=== PATIENT | female | born 1935 | race Caucasian/White ===

== ENCOUNTER 2019-06-19 10:29 | Emergency (ER) | payer MEDICARE, OTHER, SELFPAY ==
[2019-06-19 10:32] VITALS: BP 145/51; PULSE 86; RESP 20; TEMP 36.5; O2SAT 96; BMI 19.0
--- NOTE | 2019-06-19 10:47 | ED_ITS ---
HPI - Neuro Symptoms/Deficit General Chief Complaint: Neuro Symptoms/Deficit Stated Complaint: ? stroke Time Seen by Provider: 06/19/19 10:37 Source: patient Mode of arrival: Wheelchair Limitations: no limitations History of Present Illness HPI Narrative: The patient is a 84-year-old female with history of Meniere's disease presenting with extreme dizziness today so much so that she fell down. She says this is quite abnormal for her he felt a little nauseous he no longer feels like the room is spinning. She was able to call herself a cab and walk into the emergency department. She denies any weakness in her extremities no numbness or tingling she is no longer nauseous she still feels like the room is spinning slightly. But does not want any medication for it. She said the dizziness started suddenly off for her this morning and it seems to have resolved it lasted about 30-60 minutes Related Data Home Medications Medication Instructions Recorded Confirmed galantamine 4 mg tablet 4 mg PO ONCE 06/15/19 06/15/19 galantamine 8 mg tablet 8 mg PO ONCE tab 06/15/19 06/15/19 Allergies Allergy/AdvReac Type Severity Reaction Status Date / Time No Allergy Information Allergy Verified 06/19/19 10:59 Available Review of Systems Review of Systems Narrative: GENERAL: Denies chills, fatigue, malaise, fever, sweats, travel HEENT: Denies sinus pain, ear pain, sore throat, difficulty swallowing, neck pa in RESPIRATORY: Denies dyspnea, cough, wheezing, hemoptysis, sputum. CARDIOVASCULAR: Denies chest pain, palpitations, orthopnea, edema GASTROINTESTINAL: Denies nausea, vomiting, abdominal pain, diarrhea, constipation, melena. : Denies dysuria, frequency, incontinence, hematuria, urinary retention, flank pain. MUSCULOSKELETAL: Denies weakness, joint pain, or bony pain SKIN: No rash, no erythema, no pruritus NEUROLOGIC: See HPI PSYCHIATRIC: No concerning psychosocial issues. 12 point review of systems is negative except for those stated above and HPI Patient History Medical History Anemia (Chronic) Breast cancer (Chronic) Carpal tunnel syndrome (Chronic) Chicken pox (Resolved) Gerson level IV melanoma (Chronic) Head and neck cancer (Chronic) Measles (Resolved) Melanoma (Chronic) Meniere's disease (Chronic) Mumps (Resolved) Skin cancer (Chronic) Vision disorder (Chronic) Surgical History Anesthesia (Resolved) Flesh-eating bacteria (Resolved) History of cholecystectomy (Resolved) Family History Father History of heart disease Social History Smoking Status: Former smoker Exam Initial Vital Signs Initial Vital Signs: Vital Signs Temperature 97.7 F 06/19/19 10:32 Pulse Rate 86 06/19/19 10:32 Respiratory Rate 20 06/19/19 10:32 Blood Pressure 145/51 H 06/19/19 10:32 Pulse Oximetry 96 06/19/19 10:32 GENERAL: Chronically ill elderly female and in no acute distress. HEENT: Head atraumatic,EOMI, pupils reactive, face symmetric, moist mucous membranes CARDIOVASCULAR: Regular rate and rhythm without murmurs, rubs or gallops. RESPIRATORY: Breath sounds equal bilaterally, no wheezes rales or rhonchi. ABDOMEN: Soft, nontender. Normoactive bowel sounds all 4 quadrants. No guarding or rebound. EXTREMITIES: Normal range of motion, no clubbing or edema. Neurovascularly intact NEUROLOGICAL: Alert and oriented x4.Normal gait and speech. Cranial nerves II through XII grossly intact. Good endmce-gy-[id number], good aecw-my-kekm, strength equal bilaterally, no dysarthria or aphasia, sensation in tact to soft touch bilaterally, no visual changes, no facial droop SKIN: Warm, dry, no laceration, no petechiae, no rashes or lesions. Scores NIH Stroke Scale Level of Conciousness: Alert, keenly responsive Ask month/age: Answers both questions correctly. Open/close eyes, close hand: Performs both tasks correctly Best gaze horizontal: Normal Visual cottrell: No visual loss Facial palsy: Normal symetrical movement Left arm drift: No drift for full 10 sec Right arm drift: No drift for full 10 sec Left leg drift: No drift for full 10 sec Right leg drift: No drift for full 10 sec Limb ataxia: Absent Sensory on face/arms/legs: Normal, no sensory loss Best language: No aphasia, normal Dysarthria: Normal Extinction or inattention: No abnormality Total NIH Stroke scale score: 0 Course Orders Ordered: ED Orders 06/19/19 10:48 CT head/brain wo con Stat EKG-12 Lead Stat 06/19/19 11:15 Complete Blood Count AUTO DIFF Stat Comprehensive Metabolic Panel Stat Partial Thromboplastin Time Stat Prothrombin Time INR Stat Troponin I Stat 06/19/19 12:20 Urine Drug Screen, Rapid Stat Urine Microscopic Stat Discontinued Medications Sodium Chloride (Normal Saline 0.9%) 1,000 mls @ 1,000 mls/hr IV CONT RYLEE Last Admin: 06/19/19 11:40 Dose: Not Given Documented by: DANNY Meclizine HCl (Antivert) 25 mg PO NOW ONE Stop: 06/19/19 10:49 Last Admin: 06/19/19 11:32 Dose: Not Given Documented by: DANNY Vital Signs Vital signs: Vital Signs - 8 hr 06/19/19 10:32 06/19/19 12:11 06/19/19 12:50 Temperature 97.7 F Pulse Rate 86 60 55 L Respiratory Rate 20 16 Blood Pressure 145/51 H 125/57 L Blood Pressure [Left Arm] 115/69 Pulse Oximetry 96 99 99 MDM - Neuro Symptoms/Deficit Lab Data Attestation: I reviewed the patient's lab results. Result diagrams: 06/19/19 11:15 06/19/19 11:15 Labs: Lab Results 06/19/19 06/19/19 06/19/19 Range/Units 11:15 11:15 11:15 WBC 5.3 (4.5-11.0) X10^3/uL RBC 4.52 (4.0-5.2) X10^6/uL Hgb 14.1 (12.0-16.0) g/dL Hct 41.7 (36-46) % MCV 92.2 (80-100) fL MCH 31.2 (26-34) PG MCHC 33.8 (30-36) % RDW 13.1 (11.6-14.8) % Plt Count 211 (150-400) X10^3/uL Neut % (Auto) 66.0 (50-75) % Lymph % (Auto) 17.5 L (25-40) % [place] % (Auto) 8.5 (3-14) % Eos % (Auto) 3.2 (2-4) % Baso % (Auto) 4.8 H (0-2) % Neut # (Auto) 3500 (3359-9255) /uL Lymph # (Auto) 900 L (2484-9924) /uL [place] # (Auto) 500 (0-900) /uL Eos # (Auto) 200 (0-450) /uL Baso # (Auto) 300 H (0-100) /uL PT 11.2 (10.1-12.7) SECONDS INR 1.0 (0.9-1.3) APTT 32 (26.4-36.2) SECONDS Sodium 138 (137-145) mmol/L Potassium 4.0 (3.4-5.1) mmol/L Chloride 101 (98-107) mmol/L Carbon Dioxide 31 (22-32) mmol/L BUN 16 (7-17) mg/dL Creatinine 0.70 (0.52-1.04) mg/dL Estimated GFR > 60.0 (>60) mL/min BUN/Creatinine Ratio 22.9 H (6-22) Glucose 159 H (80-110) mg/dL Calcium 9.7 (8.4-10.2) mg/dL Total Bilirubin 1.1 (0.2-1.3) mg/dL AST 31 (14-36) IU/L ALT 14 (<35) IU/L Alkaline Phosphatase 41 (38-126) U/L Troponin I < 0.012 (0.01-0.034) ng/mL Total Protein 7.1 (6.3-8.2) g/dL Albumin 4.4 (3.5-5.0) g/dL Globulin 2.7 (1.7-4.1) g/dL Albumin/Globulin Ratio 1.6 (1.0-2.8) Urine RBC (0-5/HPF) Urine WBC (0-5/HPF) Ur Squamous Epith Cells (0-5/HPF) Urine Bacteria (None) Ur Culture Indicated? Micro UA Comment U Morph 300 ng/mL cutoff (Negative) Ur Oxycodone Screen (Negative) Urine Methadone Screen (Negative) Ur Barbiturates Screen (Negative) U Tricyclic Antidepress (Negative) Ur Phencyclidine Scrn (Negative) Ur Amphetamines Screen (Negative) U Methamphetamines Scrn (Negative) Ur MDMA Scrn (Ecstasy) (Negative) U Benzodiazepines Scrn (Negative) Urine Cocaine Screen (Negative) U Marijuana (THC) Screen (Negative) 06/19/19 06/19/19 Range/Units 12:20 12:20 WBC (4.5-11.0) X10^3/uL RBC (4.0-5.2) X10^6/uL Hgb (12.0-16.0) g/dL Hct (36-46) % MCV (80-100) fL MCH (26-34) PG MCHC (30-36) % RDW (11.6-14.8) % Plt Count (150-400) X10^3/uL Neut % (Auto) (50-75) % Lymph % (Auto) (25-40) % [place] % (Auto) (3-14) % Eos % (Auto) (2-4) % Baso % (Auto) (0-2) % Neut # (Auto) (9483-4928) /uL Lymph # (Auto) (4661-7490) /uL [place] # (Auto) (0-900) /uL Eos # (Auto) (0-450) /uL Baso # (Auto) (0-100) /uL PT (10.1-12.7) SECONDS INR (0.9-1.3) APTT (26.4-36.2) SECONDS Sodium (137-145) mmol/L Potassium (3.4-5.1) mmol/L Chloride (98-107) mmol/L Carbon Dioxide (22-32) mmol/L BUN (7-17) mg/dL Creatinine (0.52-1.04) mg/dL Estimated GFR (>60) mL/min BUN/Creatinine Ratio (6-22) Glucose (80-110) mg/dL Calcium (8.4-10.2) mg/dL Total Bilirubin (0.2-1.3) mg/dL AST (14-36) IU/L ALT (<35) IU/L Alkaline Phosphatase (38-126) U/L Troponin I (0.01-0.034) ng/mL Total Protein (6.3-8.2) g/dL Albumin (3.5-5.0) g/dL Globulin (1.7-4.1) g/dL Albumin/Globulin Ratio (1.0-2.8) Urine RBC 1-5/hpf (0-5/HPF) Urine WBC 0-1/hpf (0-5/HPF) Ur Squamous Epith Cells 1-5 /hpf (0-5/HPF) Urine Bacteria None seen (None) Ur Culture Indicated? Cult not indicated Micro UA Comment Microscopic normal U Morph 300 ng/mL cutoff Negative (Negative) Ur Oxycodone Screen Negative (Negative) Urine Methadone Screen Negative (Negative) Ur Barbiturates Screen Negative (Negative) U Tricyclic Antidepress Negative (Negative) Ur Phencyclidine Scrn Negative (Negative) Ur Amphetamines Screen Negative (Negative) U Methamphetamines Scrn Negative (Negative) Ur MDMA Scrn (Ecstasy) Negative (Negative) U Benzodiazepines Scrn Negative (Negative) Urine Cocaine Screen Negative (Negative) U Marijuana (THC) Screen Negative (Negative) Point of Care Testing Glucose POC 160 Urine Dip Bedside Urine Glucose Negative Bedside Urine Bilirubin - Negative Bedside Urine Ketone - Negative Urine Specific [place] 1.010 Bedside Urine Occult Blood - Negative Bedside Urine pH 7.0 Bedside Urine Protein - Negative Bedside Urine Urobilinogen - Negative Bedside Urine Nitrite - Negative Bedside Urine Leukocytes +/- [address] scan - head: Radiologist's impression: PROCEDURE: CT HEAD/BRAIN WO CON INDICATIONS: dizzy fall TECHNIQUE: Noncontrast 4.5 mm thick angled axial sections acquired from the foramen magnum to the vertex, with coronal and sagittal reformats. For radiation dose reduction, the following was used: automated exposure control, adjustment of mA and/or kV according to patient size. COMPARISON: None. FINDINGS: Image quality: There is streak artifact from the patient's earrings seen. CSF spaces: Basal cisterns are patent. No extra-axial fluid collections. The ventricles are symmetric in size and shape. Brain: No intracranial bleeds or masses. There is cerebral volume loss for age, with resultant ventricular and sulcal prominence. There are periventricular and deep white matter chronic small vessel ischemic changes. There is intracranial internal carotid artery atherosclerosis. Skull and face: Calvarium and visualized facial bones appear intact, without suspicious lesions. Sinuses: Visualized sinuses and mastoids are clear. IMPRESSION: No significant intracranial examination is seen for age. Dictated by: Toy Johnson M.D. on 06/19/2019 at 10:54 ECG Data Attestation: I personally reviewed and interpreted this ECG as follows: Interpretation: Normal sinus rhythm rate 63 p.r. interval 157 QRS [address] elevation depression T-wave inversion noted in lead 3 only MDM Narrative Medical decision making narrative: Patient refusing IV fluids and all medication. She is ambulatory to the restroom without any difficulty. No signs or symptoms of stroke no deficits. This seems to be an exacerbation of her Meinere's. She has previously needed an injection in her ear. Discharge Plan Departure Patient Disposition: Home Clinical Impression: Meniere's disease Qualifiers: Laterality: unspecified laterality Qualified Code(s): H81.09 - Meniere's disease, unspecified ear Discharge Date/Time: 06/19/19 12:51 Activity Restrictions/Additional Instructions: *You have been diagnosed with Meniere's disease *What to do: Today was likely an exacerbation of her Meniere's disease no evidence of stroke *Continue to take medications as directed *Follow up with your primary care provider in 2-3 days *Return to ER if you should have persistent dizziness nausea vomiting, extremity weakness difficulty with speech or any new, worsening or concerning symptoms Prescriptions: No Action galantamine 8 mg tablet 8 mg PO ONCE RF: 0 galantamine 4 mg tablet 4 mg PO ONCE RF: 0 Referrals: Raghavendra Nguyen MD [Primary Care Provider] -
[2019-06-19 11:31] LABS: Add Manual Diff / Slide Review NO; Basophils Absolute Auto 300 /uL (0-100); Basophils Percent Auto 4.8 % (0-2); Eosinophils Absolute Auto 200 /uL (0-450); Eosinophils Percent Auto 3.2 % (2-4); Hematocrit 41.7 % (36-46); Hemoglobin 14.1 g/dL (12.0-16.0); Lymphocytes Absolute Auto 900 /uL (1100-4500); Lymphocytes Percent Auto 17.5 % (25-40); Mean Corpuscular HGB Conc 33.8 % (30-36); Mean Corpuscular Hemoglobin 31.2 PG (26-34); Mean Corpuscular Volume 92.2 fL (80-100); Monocytes Absolute Auto 500 /uL (0-900); Monocytes Percent Auto 8.5 % (3-14); Neutrophils Absolute Auto 3500 /uL (1500-7000); Platelet Count 211 X10^3/uL (150-400); Red Blood Cell Count 4.52 X10^6/uL (4.0-5.2); Red Cell Distribution Width 13.1 % (11.6-14.8); White Blood Cell Count 5.3 X10^3/uL (4.5-11.0)
[2019-06-19 11:38] LABS: Prothrombin Time 11.2 SECONDS (10.1-12.7)
[2019-06-19 11:41] LABS: PTT Partial Thromboplastin Tim 32 SECONDS (26.4-36.2)
[2019-06-19 11:42] LABS: Alanine Aminotransferase 14 IU/L (<35); Albumin 4.4 g/dL (3.5-5.0); Albumin Globulin Ratio 1.6 (1.0-2.8); Alkaline Phosphatase 41 U/L (38-126); Aspartate Aminotransferase 31 IU/L (14-36); BUN Creatinine Ratio 22.9 (6-22); Bilirubin Total 1.1 mg/dL (0.2-1.3); Blood Urea Nitrogen 16 mg/dL (7-17); Calcium 9.7 mg/dL (8.4-10.2); Carbon Dioxide 31 mmol/L (22-32); Chloride 101 mmol/L (98-107); Estimated Glomerular Filt Rate > 60.0 mL/min (>60); Globulin 2.7 g/dL (1.7-4.1); Glucose 159 mg/dL (80-110); HEMOLYSIS 43 (0-50); Sodium 138 mmol/L (137-145); Total Protein 7.1 g/dL (6.3-8.2)
[2019-06-19 11:53] LABS: Troponin I < 0.012 ng/mL (0.01-0.034)
--- NOTE | 2019-06-19 11:59 | PC.NURSE ---
1 IV attempt. Pt states I need to use baby needles i attempted IV with 22. Pt refuses to let anyone try for a second IV. Explained need for medications and IV. Pt still refused. , notified and Lab called for draw. Pt also states she took her own meclazine at home and declines medication here. Notified.
[2019-06-19 12:11] VITALS: BP 115/69; PULSE 60; O2SAT 99
--- NOTE | 2019-06-19 12:16 | PC.NURSE ---
Pt states she was walking, got dizzy and fell into TV,. unclear if she hit her head. States she does this all the time but this is worse than normal
--- NOTE | 2019-06-19 12:25 | PC.NURSE ---
Pt ambulatory to restroom. States she feels better. Pt steady on her feet denies symptoms at this time. Notiffeli
[2019-06-19 12:35] LABS: Bacteria Urine None Seen
[2019-06-19 12:37] LABS: UR Morphine/Opiate cutoff 300 Negative (Negative); Ur Creatinine Normal (Normal); Ur Specific Gravity Normal (Normal); Urine Amphetamines Negative (Negative); Urine Barbiturates Negative (Negative); Urine Benzodiazepines Negative (Negative); Urine Cocaine Negative (Negative); Urine MDMA Negative (Negative); Urine Methadone Negative (Negative); Urine Methamphetamines Negative (Negative); Urine Oxycodone Negative (Negative); Urine Phencyclidine Negative (Negative); Urine Tetrahydrocannabinol Negative (Negative); Urine Tricyclic Antidepressant Negative (Negative); Urine pH Normal (Normal)
[2019-06-19 12:46] LABS: Culture Indicated Urine Cult Not Indicated; RBC Urine 1-5/HPF (0-5/HPF); Squamous Epithelial Cell Urine 1-5 /HPF (0-5/HPF); Urine Comments Microscopic Normal; WBC Urine 0-1/HPF (0-5/HPF)
[2019-06-19 12:50] VITALS: BP 125/57; PULSE 55; RESP 16; O2SAT 99
== END 2019-06-19 12:51 | disposition home or self-care (01) ==
PROVIDERS: Emergency Provider Emergency Medicine; PCP Student in an Organized Health Care Education/Training Program
DX: H81.09 Meniere's disease, unspecified ear (principal); W19.XXXA Unspecified fall, initial encounter
CPT/HCPCS: 36415; 70450; 80053; 80305; 81003; 81015; 82962; 84484; 85025; 85610; 85730; 93005; 99283; 99285

== ENCOUNTER → 2019-07-24 14:40 | Outpatient (CLI) | payer MEDICARE, OTHER, SELFPAY ==
--- NOTE | 2019-07-24 | DI.MG.S_ITS ---
BILATERAL DIGITAL SCREENING MAMMOGRAM 3D/2D WITH CAD: 07/24/2019 CLINICAL: Routine screening. Comparison is made to exams dated: 07/08/2016 mammogram, 07/09/2017 mammogram, and [facility] The tissue of both breasts is heterogeneously dense. This may lower the sensitivity of mammography. Current study was also evaluated with a Computer Aided Detection (CAD) system. There are benign calcifications in both breasts. No significant masses, calcifications, or other findings are seen in either breast. There has been no significant interval change. IMPRESSION: There is no mammographic evidence of malignancy. A 1 year screening mammogram is recommended. This exam was interpreted at Station ID: [id number]. NOTE: For mammograms, a report in lay terms will be sent to the patient. Approximately 15% of breast malignancies will not be visualized mammographically. In the management of a palpable breast mass, a negative mammogram must not discourage biopsy of a clinically suspicious lesion. Electronically Signed By: Ruperto cote/[email or web address]:07/26/2019 07:42:18 letter sent: Normal Exam ACR BI-RADS Category 2: Benign Finding(s) 3342F
== END ==
PROVIDERS: PCP Student in an Organized Health Care Education/Training Program; Visit Provider Student in an Organized Health Care Education/Training Program
DX: Z12.31 Encounter for screening mammogram for malignant neoplasm of breast (principal)
CPT/HCPCS: 77063; 77067

== ENCOUNTER → 2019-09-03 09:55 | Outpatient (CLI) | payer MEDICARE, OTHER, SELFPAY ==
[2019-09-03 10:16] LABS: Appearance Urine UA CLEAR; Bilirubin Urine UA NEGATIVE (NEGATIVE); Color Urine UA YELLOW; Glucose Urine UA NEGATIVE (Negative); Ketones Urine UA NEGATIVE (NEGATIVE); Leukocyte Esterase Urine UA 1+ (NEGATIVE); Nitrite Urine UA NEGATIVE (Negative); Occult Blood Urine UA TRACE-LYSED (Negative); Protein Urine UA NEGATIVE (Negative); Specific Gravity Urine UA 1.015 (1.000-1.035); Urobilinogen Urine UA 0.2 E.U./dL (0.2)
[2019-09-03 10:33] LABS: Bacteria Urine Occasional (0-1); Culture Indicated Urine Cult Not Indicated; RBC Urine 0-1/HPF (0-5/HPF); Squamous Epithelial Cell Urine 0-1 /HPF (0-5/HPF); WBC Urine 0-1/HPF (0-5/HPF); pH Urine UA 7.5 (4.5-8.0)
== END ==
PROVIDERS: PCP Student in an Organized Health Care Education/Training Program; Referring Provider Student in an Organized Health Care Education/Training Program; Visit Provider Student in an Organized Health Care Education/Training Program
DX: R30.0 Dysuria (principal)
CPT/HCPCS: 81001

== ENCOUNTER 2019-10-13 13:00 | Outpatient (RCR) | payer MEDICARE, OTHER, SELFPAY ==
--- NOTE | 2019-09-23 16:00 | PT.OIE ---
Current Diagnoses Stress incontinence (female) (male) (09/23/19) Urge incontinence (09/23/19) Fecal urgency (09/23/19) Past Medical History (Last Updated 06/22/19 @ 12:06 by Raghavendra Nguyen MD) Breast cancer (Resolved) Carpal tunnel syndrome (Chronic) Chicken pox (Resolved) Head and neck cancer (Chronic) Measles (Resolved) Mumps (Resolved) Vision disorder (Chronic) Past Surgical History (Last Updated 06/22/19 @ 12:06 by Raghavendra Nguyen MD) Anesthesia (Resolved) Flesh-eating bacteria (Resolved) History of cholecystectomy (Resolved) Visit Care Team Role Provider Type Raghavendra Nguyen MD Attending Provider Physician Primary Care Provider Referring Provider Specialty: Internal Medicine Address: [address] [place] [address], [address], [facility] Email: [email or web address] Physical Therapy Initial Evaluation PT-OP-A Visit Information Start: 09/23/19 07:47 Freq: Status: Active Protocol: Document 09/23/19 09:45 EG (Rec: 09/23/19 16:44 EG [email or web address]) Out-Patient Physical Therapy Visit Information Visit Information Visit Type Initial Evaluation Visit Note 08/06 Visit Start Time 09:45 Visit Stop Time 10:40 Total Visit Minutes 55 Visit Number 1 Number of STOCK PITCHER Visits 0 Evaluation Information Evaluation Date 09/23/19 Precautions Precautions Memory Loss; Decreased bed mobility Dizziness lying down due to Meneire's Disease PT-OP-B Current Condition Start: 09/23/19 07:47 Freq: Status: Active Protocol: Document 09/23/19 09:45 EG (Rec: 09/23/19 10:48 EG [id number]) Current Condition History of Current Condition Onset Date 09/23/2019 Current Complaints Stool leakage and urinary frequency History of Current Condition Patient reported moving here from [place] last March 2019 and says that ever since she moved here she's had problems with what she is eating. She has been having fecal and urinary leakage. She recognizes that her stool is a little looser and she is having diarrhea a lot. Patient brought menus to share with PT. She has had this problem with the food in the [facility] in the past, it was then okay for a few months, and now her symptoms are coming back. She reports that she is having urinary leakage 1x/day and needing to urinate a lot throughout the day - about every hour to 2 hours. She reports that she wears pads all the time. She mentions that when she eats food, she seems to have to have a bowel movement within 24-48 hours. She reports that her urinary and fecal leaks vary throughout the day but coughing/sneezing makes her leak urine. Some days she has an increased urge to urinate and other days she can hold urine. She often goes to the bathroom 1x at night; sometimes 2x at night. Bowel movements are usually during the day. 1 bowel movements 1x/ day or every other day. She reports a history of constipation so she took a stool softener to help. She drinks a lot of water. Prior Treatments and Tests Physical Therapy many years ago Developmental History Developmental History See above Treatment Goals Patient/Caregiver Goals Patient would like to control her bowel movements and decrease urinary leaks Prior Functional Status Baseline Function- ADL's Modified Independent Baseline Function- Mobility Independent Baseline Function- Work/School Retired Baseline Function- Other Patient lives at [facility] and moved here from [place] to be closer to family. Has history of cognitive decline and is taking medication for Alzheimers. 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 Current Functional Impairments (Reported) Functional Limitations- ADL's Frequency of trips to the bathroom to void. Decreased ability to hold fecal matter in. Increased urinary leakage. Personal Factors Other Personal Factors That May Effect Memory Loss Therapy/Recovery History of cancer Expressive Aphasia Meniere's Disease Anemia Just moved to area to live in Assisted Living - less control of meals PT-OP-C Subjective Start: 09/23/19 07:47 Freq: Status: Active Protocol: Document 09/23/19 09:45 EG (Rec: 09/23/19 16:44 EG [email or web address]) Patient Questionnaires Pelvic Pain and Urgency/Frequency Patient Symptom Scale Pelvic Pain Score 13 PT-OP-I Pelvic Floor Start: 09/23/19 07:47 Freq: Status: Active Protocol: Document 09/23/19 09:45 AMB (Rec: 09/23/19 11:53 AMB [email or web address]) Pelvic Floor Assessment Urine Urinary Symptoms Urge Sensation Leakage Size Medium Leakage Cause Cough,Sneeze Leaks Per Day 1- multiple times per day Voiding Frequency every 1-2 hours Nocturia 1 Urine Pad Type Maxi Pad Bowel Bowel Symptoms Constipation,Fecal Leakage Other Bowel Symptoms Pt reports history of constipation, and was taking what we think are stool softeners which she takes about 1x/week per her report, but then she also has loose stools Bowel Movement Frequency 1x/day to every other day Pelvic Clock Pelvic Clock 12-3 Tenderness Pelvic Clock 3-6 Tenderness Pelvic Clock 6-9 Tenderness Pelvic Clock 9-12 Tenderness Pelvic Clock Other pt with mild tenderness, difficulty fully assessing as pt reports she is unable to lie down, so was assessed with HOB at 60 degrees Contraction Ability Voluntary Contraction Weak Voluntary Relaxation Weak Manual Muscle Testing Left 1 Manual Muscle Testing Right 1 Manual Muscle Testing Anterior 1 Manual Muscle Testing Posterior 2 Muscle Endurance (Seconds) 4 Number of Quick Contractions In 10 3 Seconds Comments Pelvic Floor Comments pt tends to use her abdominal muscles and gluteals, but is able to contract her pelvic floor, isolation is difficult PT-OP-T Assessment and Plan Start: 09/23/19 07:47 Freq: Status: Active Protocol: Document 09/23/19 09:45 EG (Rec: 09/23/19 16:44 EG [email or web address]) Physical Therapy Assessment Rehab Potential Rehabilitation Potential Fair Evaluation Complexity Number of Personal Factors/Comorbidities 3 or More Number of Body Systems Impaired 4 or More Clinical Presentation at Evaluation Evolving Impairments Impairments Activity Tolerance, Coordination,Functional Activities,Functional Mobility ,Gait,ROM,Strength Other Concerns Barriers to Rehabilitation Memory Loss/Confusion Inability to predict what is causing diarrhea Goals Two Impairment Urinary Voidance Frequency Short Term Goal (STG) Patient will decrease urinary voids to 10x a day with 50% decreased urinary urge in 4 weeks. STG Duration 4 weeks Face Burler Goal (LTG) Patient will control urge urinary incontinence 90% of the time and have <1 leak/week in 8 weeks. LTG Duration 8 weeks One Impairment Fecal leakage Short Term Goal (STG) Patient will be able to control fecal leakage 50% of the time in 4 weeks. STG Duration 4 weeks Face Burler Goal (LTG) Patient will no longer have fecal leakage and will make it to the bathroom to have a bowel movement 90% of the time in 8 weeks. LTG Duration 8 weeks Assessment Summary Assessment Patient is a pleasant 84 year old female who presents to physical therapy for fecal and urinary incontinence though full symptoms are unclear due to history of memory loss and confusion of the patient. Patient seems to be suffering from increased urinary voids throughout the day but has limited urinary leaks reporting 1-2x/day. patient may be suffering from stress incontinence as well due to reported leakage with cough. sneeze and slight weakness with pelvic floor contraction. Patient's main complaint at this time is the fecal leakage from diarrhea but it is unclear of exact medication the patient is taking for constipation/stool softener. Patient did have decreased coordination and isolation when christal pelvic floor separate from abdominal muscles and will benefit from physical therapy for pelvic floor neuromuscular reeducation as well as coordination control and strengthening to help reduce the amount of fecal leaks and urinary frequency throughout the day. At this time, rehab potential is guarded due to cognitive impairments and medical comorbidities. Physical Therapy Plan Frequency and Duration Frequency of Treatment 1x/Week Duration of Treatment 6 Plan of Care Start Date 09/23/19 Plan of Care End Date 11/04/19 Therapeutic Interventions Therapeutic Interventions Coordination Training,Home Exercise Program,Manual Therapy,Neuromuscular Re- education,Patient/Caregiver Education,Self-Care/Home Management,Soft Tissue Mobilization,Therapeutic Activities,Therapeutic Exercises Modalities Biofeedback,Electric Stimulation Next Visit Focus/Plan Next Note Type Treatment Note Next Visit Plan Assess how kegel exercises are going at home. possibly begin biofeedback - work on urge incontinence and possibly increase strengthening exercises. Lesley Ennis DPT, supervised all treatment performed by, and agreed with the plan of care, as performed by Sofy Willard, JAZMÍN.
--- NOTE | 2019-09-23 16:00 | PT.OPPOC ---
Physical, Occupational & Speech Therapy At [facility] Current Diagnoses Stress incontinence (female) (male) (09/23/19) Urge incontinence (09/23/19) Fecal urgency (09/23/19) Visit Care Team Role Provider Type Raghavendra Nguyen MD Attending Provider Physician Primary Care Provider Referring Provider Specialty: Internal Medicine Address: [address] [place] [address], [address], [facility] Email: [email or web address] Plan Of Care PT-OP-T Assessment and Plan Start: 09/23/19 07:47 Freq: Status: Active Protocol: Document 09/23/19 09:45 EG (Rec: 09/23/19 16:44 EG [email or web address]) Physical Therapy Assessment Rehab Potential Rehabilitation Potential Fair Evaluation Complexity Number of Personal Factors/Comorbidities 3 or More Number of Body Systems Impaired 4 or More Clinical Presentation at Evaluation Evolving Impairments Impairments Activity Tolerance, Coordination,Functional Activities,Functional Mobility ,Gait,ROM,Strength Other Concerns Barriers to Rehabilitation Memory Loss/Confusion Inability to predict what is causing diarrhea Goals Two Impairment Urinary Void Frequency Short Term Goal (STG) Patient will decrease urinary voids to 10x a day with 50% decreased urinary urge in 4 weeks. STG Duration 4 weeks Long-Term Goal (LTG) Patient will control urge urinary incontinence 90% of the time and have <1 leak/week in 8 weeks. LTG Duration 8 weeks One Impairment Fecal leakage Short Term Goal (STG) Patient will be able to control fecal leakage 50% of the time in 4 weeks. STG Duration 4 weeks Long-Term Goal (LTG) Patient will no longer have fecal leakage and will make it to the bathroom to have a bowel movement 90% of the time in 8 weeks. LTG Duration 8 weeks Assessment Summary Assessment Patient is a pleasant 84 year old female who presents to physical therapy for fecal and urinary incontinence though full symptoms are unclear due to history of memory loss and confusion of the patient. Patient seems to be suffering from increased urinary voids throughout the day but has limited urinary leaks reporting 1-2x/day. patient may be suffering from stress incontinence as well due to reported leakage with cough. sneeze and slight weakness with pelvic floor contraction. Patient's main complaint at this time is the fecal leakage from diarrhea but it is unclear of exact medication the patient is taking for constipation/stool softener. Patient did have decreased coordination and isolation when christal pelvic floor separate from abdominal muscles and will benefit from physical therapy for pelvic floor neuromuscular reeducation as well as coordination control and strengthening to help reduce the amount of fecal leaks and urinary frequency throughout the day. At this time, rehab potential is guarded due to cognitive impairments and medical comorbidities. Physical Therapy Plan Frequency and Duration Frequency of Treatment 1x/Week Duration of Treatment 6 Plan of Care Start Date 09/23/19 Plan of Care End Date 11/04/19 Therapeutic Interventions Therapeutic Interventions Coordination Training,Home Exercise Program,Manual Therapy,Neuromuscular Re- education,Patient/Caregiver Education,Self-Care/Home Management,Soft Tissue Mobilization,Therapeutic Activities,Therapeutic Exercises Modalities Biofeedback,Electric Stimulation Next Visit Focus/Plan Next Note Type Treatment Note Next Visit Plan Assess how kegel exercises are going at home. possibly begin biofeedback - work on urge incontinence and possibly increase strengthening exercises. Plan of Care Dates Plan of Care Start Date 09/23/19 Plan of Care End Date 11/04/19 ILesley, ANUPAM, supervised all treatment performed by, and agreed with the plan of care, as performed by Sofy Willard, JAZMÍN. Electronically Signed by: Lesley Brooks, PT 09/24/19 [id number] Please Sign and Return: I have reviewed this Plan of Care and certify that the skilled therapy services above are required to meet the patient?s needs. Physician Signature Date Printed Name and Credentials Clinical Instructor Signature Printed Name and Credentials
--- NOTE | 2019-10-13 15:30 | PT.OTN ---
Current Diagnoses Stress incontinence (female) (male) (10/13/19) Urge incontinence (10/13/19) Fecal urgency (10/13/19) Physical Therapy Treatment Note PT-OP-A Visit Information Start: 09/23/19 07:47 Freq: Status: Active Protocol: Document 10/13/19 13:00 EG (Rec: 10/13/19 14:17 EG [email or web address]) Out-Patient Physical Therapy Visit Information Visit Information Visit Type Treatment Note Visit Note 09/06 Visit Start Time 13:00 Visit Stop Time 13:45 Total Visit Minutes 45 Visit Number 2 Number of HAND CROCHETER Visits 0 PT-OP-B Current Condition Start: 09/23/19 07:47 Freq: Status: Active Protocol: Document 09/23/19 09:45 EG (Rec: 09/23/19 10:48 EG [id number]) Current Condition History of Current Condition Onset Date 09/23/2019 Current Complaints Stool leakage and urinary frequency History of Current Condition Patient reported moving here from [place] last March 2019 and says that ever since she moved here she's had problems with what she is eating. She has been having fecal and urinary leakage. She recognizes that her stool is a little looser and she is having diarrhea a lot. Patient brought menus to share with PT. She has had this problem with the [facility] in the [facility] in the past, it was then okay for a few months, and now her symptoms are coming back. She reports that she is having urinary leakage 1x/day and needing to urinate a lot throughout the day - about every hour to 2 hours. She reports that she wears pads all the time. She mentions that when she eats food, she seems to have to have a bowel movement within 24-48 hours. She reports that her urinary and fecal leaks vary throughout the day but coughing/sneezing makes her leak urine. Some days she has an increased urge to urinate and other days she can hold urine. She often goes to the bathroom 1x at night; sometimes 2x at night. Bowel movements are usually during the day. 1 bowel movements 1x/ day or every other day. She reports a history of constipation so she took a stool softener to help. She drinks a lot of water. Prior Treatments and Tests Physical Therapy many years ago Developmental History Developmental History See above Treatment Goals Patient/Caregiver Goals Patient would like to control her bowel movements and decrease urinary leaks Prior Functional Status Baseline Function- ADL's Modified Independent Baseline Function- Mobility Independent Baseline Function- Work/School Retired Baseline Function- Other Patient lives at assisted living and moved here from [place] to be closer to family. Has history of cognitive decline and is taking medication for Alzheimers. 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 Current Functional Impairments (Reported) Functional Limitations- ADL's Frequency of trips to the bathroom to void. Decreased ability to hold fecal matter in. Increased urinary leakage. Personal Factors Other Personal Factors That May Effect Memory Loss Therapy/Recovery History of cancer Expressive Aphasia Meniere's Disease Anemia Just moved to area to live in Assisted Living - less control of meals PT-OP-C Subjective Start: 09/23/19 07:47 Freq: Status: Active Protocol: Document 10/13/19 13:00 EG (Rec: 10/13/19 14:17 EG [email or web address]) OP-PT Subjective Patient Comments Patient Comments Patient said that things were all about the same. She has been having fecal leakage everyday. She doesn't know if she is doing her exercises right. PT-OP-I Pelvic Floor Start: 09/23/19 07:47 Freq: Status: Active Protocol: Document 09/23/19 09:45 AMB (Rec: 09/23/19 11:53 AMB [email or web address]) Pelvic Floor Assessment Urine Urinary Symptoms Urge Sensation Leakage Size Medium Leakage Cause Cough,Sneeze Leaks Per Day 1- multiple times per day Voiding Frequency every 1-2 hours Nocturia 1 Urine Pad Type Maxi Pad Bowel Bowel Symptoms Constipation,Fecal Leakage Other Bowel Symptoms Pt reports history of constipation, and was taking what we think are stool softeners which she takes about 1x/week per her report, but then she also has loose stools Bowel Movement Frequency 1x/day to every other day Pelvic Clock Pelvic Clock 12-3 Tenderness Pelvic Clock 3-6 Tenderness Pelvic Clock 6-9 Tenderness Pelvic Clock 9-12 Tenderness Pelvic Clock Other pt with mild tenderness, diffiuclty fully assessing as pt reports she is unable to lie down, so was assessed with HOB at 60 degrees Contraction Ability Voluntary Contraction Weak Voluntary Relaxation Weak Manual Muscle Testing Left 1 Manual Muscle Testing Right 1 Manual Muscle Testing Anterior 1 Manual Muscle Testing Posterior 2 Muscle Endurance (Seconds) 4 Number of Quick Contractions In 10 3 Seconds Comments Pelvic Floor Comments pt tends to use her abdominal muscles and gluteals, but is able to contract her pelvic floor, isolation is difficult PT-OP-Q Treatments Start: 09/23/19 07:47 Freq: Status: Active Protocol: Document 10/13/19 13:00 EG (Rec: 10/13/19 14:17 EG [email or web address]) Therapeutic Exercises Supine Exercises PF contraction Supine Exercise Name PF contraction Reps/Minutes 10x each exercise Comments Quick Flicks/5 sec hold. verbal/tactile cues necesary. Increased time needed Self-Care/Home Management Treatment Education Patient Education Body Mechanics,Home Exercise Program,Posture Other Education Patient given education on how to contact personal injury paralegal to help schedule appointment regarding food and impact on digestive system. Also educated on amount of Miralax patient is taking to help decrease loose stool. Patient educated on where to buy chucks to place on bed. Given much instruction on how to perform PF contraction and how to use tactile cues to help with contraction. PT-OP-T Assessment and Plan Start: 09/23/19 07:47 Freq: Status: Active Protocol: Document 10/13/19 13:00 EG (Rec: 10/13/19 14:17 EG [email or web address]) Physical Therapy Assessment Assessment Summary Assessment Patient tolerated treatment fair this afternoon. The patient was confused throughout treatment and would talk about unrelated topics frequently. She seems to understand the pelvic floor contraction cues but does need repetition and simple instruction to perform. Increased time was needed to instruct ther-ex due to confusion. She will be taking a couple weeks before coming back to therapy due to the Covid-19 pandemic. patient was given HEP sheet to help instruct pelvic floor contraction as well as to give instruction on how to contact personal injury paralegal. Physical Therapy Plan Next Visit Focus/Plan Next Note Type Treatment Note Next Visit Plan Assess how kegal exercises are going at home. possibly begin biofeedback - check in with how contacting personal injury paralegal is going. ILesley DPT, supervised all treatment performed by, and agreed with the plan of care, as performed by Sofy Willard, JAZMÍN.
--- NOTE | 2020-03-02 07:20 | PT.OPDS ---
Current Diagnoses Stress incontinence (female) (male) (10/13/19) Urge incontinence (10/13/19) Fecal urgency (10/13/19) Visit Care Team Role Provider Type Raghavendra Nguyen MD Attending Provider Physician Primary Care Provider Referring Provider Specialty: Internal Medicine Address: [address] [place] [address], [address] [place] [address], [id number] Email: [email or web address] Visit Number Visit Number 2 Discharge Summary PT-OP-B Current Condition Start: 09/23/19 07:47 Freq: Status: Active Protocol: Document 09/23/19 09:45 EG (Rec: 09/23/19 10:48 EG [id number]) Current Condition History of Current Condition Onset Date 09/23/2019 Current Complaints Stool leakage and urinary frequency History of Current Condition Patient reported moving here from [place] last March 2019 and says that ever since she moved here she's had problems with what she is eating. She has been having fecal and urinary leakage. She recognizes that her stool is a little looser and she is having diarrhea a lot. Patient brought menus to share with PT. She has had this problem with the food in the [facility] living facility in the past, it was then okay for a few months, and now her symptoms are coming back. She reports that she is having urinary leakage 1x/day and needing to urinate a lot throughout the day - about every hour to 2 hours. She reports that she wears pads all the time. She mentions that when she eats food, she seems to have to have a bowel movement within 24-48 hours. She reports that her urinary and fecal leaks vary throughout the day but coughing/sneezing makes her leak urine. Some days she has an increased urge to urinate and other days she can hold urine. She often goes to the bathroom 1x at night; sometimes 2x at night. Bowel movements are usually during the day. 1 bowel movements 1x/ day or every other day. She reports a history of constipation so she took a stool softener to help. She drinks a lot of water. Prior Treatments and Tests Physical Therapy many years ago Developmental History Developmental History See above Treatment Goals Patient/Caregiver Goals Patient would like to control her bowel movements and decrease urinary leaks Prior Functional Status Baseline Function- ADL's Modified Independent Baseline Function- Mobility Independent Baseline Function- Work/School Retired Baseline Function- Other Patient lives at assisted living and moved here from [place] to be closer to family. Has history of cognitive decline and is taking medication for Alzheimers. 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 Current Functional Impairments (Reported) Functional Limitations- ADL's Frequency of trips to the bathroom to void. Decreased ability to hold fecal matter in. Increased urinary leakage. Personal Factors Other Personal Factors That May Effect Memory Loss Therapy/Recovery History of cancer Expressive Aphasia Meniere's Disease Anemia Just moved to area to live in Assisted Living - less control of meals PT-OP-C Subjective Start: 09/23/19 07:47 Freq: Status: Active Protocol: Document 10/13/19 13:00 EG (Rec: 10/13/19 14:17 EG [email or web address]) OP-PT Subjective Patient Comments Patient Comments Patient said that things were all about the same. She has been having fecal leakage everyday. She doesn't know if she is doing her exercises right. PT-OP-I Pelvic Floor Start: 09/23/19 07:47 Freq: Status: Active Protocol: Document 09/23/19 09:45 AMB (Rec: 09/23/19 11:53 AMB [email or web address]) Pelvic Floor Assessment Urine Urinary Symptoms Urge Sensation Leakage Size Medium Leakage Cause Cough,Sneeze Leaks Per Day 1- multiple times per day Voiding Frequency every 1-2 hours Nocturia 1 Urine Pad Type Maxi Pad Bowel Bowel Symptoms Constipation,Fecal Leakage Other Bowel Symptoms Pt reports history of constipation, and was taking what we think are stool softeners which she takes about 1x/week per her report, but then she also has loose stools Bowel Movement Frequency 1x/day to every other day Pelvic Clock Pelvic Clock 12-3 Tenderness Pelvic Clock 3-6 Tenderness Pelvic Clock 6-9 Tenderness Pelvic Clock 9-12 Tenderness Pelvic Clock Other pt with mild tenderness, diffiuclty fully assessing as pt reports she is unable to lie down, so was assessed with HOB at 60 degrees Contraction Ability Voluntary Contraction Weak Voluntary Relaxation Weak Manual Muscle Testing Left 1 Manual Muscle Testing Right 1 Manual Muscle Testing Anterior 1 Manual Muscle Testing Posterior 2 Muscle Endurance (Seconds) 4 Number of Quick Contractions In 10 3 Seconds Comments Pelvic Floor Comments pt tends to use her abdominal muscles and gluteals, but is able to contract her pelvic floor, isolation is difficult PT-OP-T Assessment and Plan Start: 09/23/19 07:47 Freq: Status: Active Protocol: Document 03/02/20 07:20 MB (Rec: 03/02/20 07:20 MB [id number]) Physical Therapy Plan Discharge Physical Therapy Discharge Reasons No Longer Attending PT Discharge Comments Pt has not been seen since before COVID closure. Clinic has left message to inquire about con't PT and pt has not returned call. Will d/c PT.
== END 2020-03-02 13:13 ==
LOC: PHYS 13:00
PROVIDERS: PCP Student in an Organized Health Care Education/Training Program; Referring Provider Student in an Organized Health Care Education/Training Program; Visit Provider Student in an Organized Health Care Education/Training Program
DX: N39.41 Urge incontinence (principal); R15.2 Fecal urgency; N39.3 Stress incontinence (female) (male)
CPT/HCPCS: 97110; 97162; 97535